=== PATIENT | female | born 1945 | race Caucasian/White ===

== ENCOUNTER 2020-12-05 08:41 | Emergency (ER) | payer MEDICARE, OTHER ==
[~2020-12-05] VITALS: Ht 167.6 cm; Wt 90.9 kg
[~2020-12-05 08:41] MED LIST: AMLO-311 PO; ASPI-482 PO; CLON0.5T4 PO; ESCITALOPRAM OX10 MG PO; HYDR12.553 PO; LISI-517 PO; LOVA40TA2 PO; OMEP20TA8 PO; PERP1TAB5 PO; TRAZ-120 PO
[2020-12-05] MEDS ORDERED: AMOX1TAB61 PO (09:10)
--- NOTE | 2020-12-05 09:10 | PHYS DOC ---
Past History Past Medical History: Arthritis, Fibromyalgia, Hypertension Past Surgical History: Appendectomy, Oophorectomy Alcohol Use: None Drug Use: None General Adult EDM: Chief Complaint: DENTAL PROBLEM HPI: HPI: Patient is a 75-year-old female presenting for 2 days of worsening right lower jaw pain. Patient states she has swelling in the side of her mouth. States he was eating and bit down on something 2 days ago that caused pain and has been worsening. No systemic complaints. She felt like her tongue was a little bit swollen but no difficulty swallowing and says her tongue swelling is better now. Review of Systems: Review of Systems: All other systems within normal limits except for as noted in the HPI Allergies: Allergies: Allergies Coded Allergies Type Severity Reaction Last Updated Verified No Known Drug Allergies 12/20/13 No Physical Exam: PE: Constitutional: Well developed, well nourished, no acute distress, non-toxic appearance. [] HENT: Normocephalic, atraumatic, bilateral external ears normal, nose normal. Edema of right gingiva, multiple dental caries, no fluctuance or purulent drainage. No oral lesions. No evidence of tongue swelling.[] Eyes: PERRLA, conjunctiva normal, no discharge. [] Neck: No rigidity, supple, no stridor. [] Cardiovascular: Regular rate and rhythm, brisk cap refill [] Lungs & Thorax: Non labored symmetric respirations, no tachypnea or respiratory distress [] Abdomen: Soft, nondistended. Skin: Warm, dry, no erythema, no rash. [] Back: Unremarkable Extremities: No deformities, range of motion grossly intact, no lower extremity edema [] Neurologic: Alert and oriented X 3, no focal deficits noted. [] Psychologic: Affect normal, judgement normal, mood normal. [] EKG: EKG: [] Radiology/Procedures: Radiology/Procedures: [] Heart Score: C/O Chest Pain: No Risk Factors: Risk Factors: DM, Current or recent (<one month) smoker, HTN, HLP, family history of CAD, obesity. Risk Scores: Score 0 - 3: 2.5% MACE over next 6 weeks - Discharge Home Score 4 - 6: 20.3% MACE over next 6 weeks - Admit for Clinical Observation Score 7 - 10: 72.7% MACE over next 6 weeks - Early Invasive Strategies Course & Med Decision Making: Course & Med Decision Making Pertinent Labs and Imaging studies reviewed. (See chart for details) [] Dragon Disclaimer: Dragon Disclaimer: This electronic medical record was generated, in whole or in part, using a voice recognition dictation system. Departure Departure: Impression: Primary Impression: Dental abscess Disposition: HOME / SELF CARE / HOMELESS Condition: STABLE Referrals: PARKER ZELAYA MD (PCP) Patient Instructions: Dental Abscess Scripts Amoxicillin/Potassium Clav (AUGMENTIN 875-125 TABLET) 1 Each Tablet 1 TAB PO BID for antibiotic for 10 Days, #20 TAB 0 Refills Prov: TAHIRA PERSON MD 12/05/20 TAHIRA PERSON MD Dec 05, 2020 09:10
[2020-12-05 09:37] VITALS: BP 112/41
== END 2020-12-05 09:38 | disposition home or self-care (01) ==
LOC: ER 08:41
DX: K04.7 Periapical abscess without sinus (principal); K02.9 Dental caries, unspecified; M19.90 Unspecified osteoarthritis, unspecified site; M79.7 Fibromyalgia; I10 Essential (primary) hypertension
CPT/HCPCS: 99281

== ENCOUNTER 2021-07-21 09:49 | Inpatient (IN) | payer MEDICARE ==
[~2021-07-21] VITALS: Ht 167.6 cm; Wt 92.9 kg
[~2021-07-21 09:49] MED LIST changes: +AMOX1TAB61 PO; -LISI-517 PO; +LISI5TAB15 PO
--- NOTE | 2021-07-21 10:03 | PHYS DOC ---
Past History Past Medical History: Arthritis, Fibromyalgia, GERD, High Cholesterol, Hypertension Past Surgical History: Appendectomy, Oophorectomy Alcohol Use: None Drug Use: None General Adult EDM: Chief Complaint: SYNCOPE HPI: HPI: 76-year-old female presents with syncopal episode at home. Patient states that she has been feeling "sick and under the weather" for the last 1 week. Other family members have been improving but she has not. She states her biggest symptom is profound fatigue. She was not vaccinated against COVID-19. The patient is coming back from the bathroom and states that she decided she would sit down and rest. The next thing she remembers is her daughter talking to her and telling her she called an ambulance. The patient says that she did not pass out but does not remember a period of time. She is not on oxygen at home. No history of COPD. Denies fever or chills. Review of Systems: Review of Systems: Constitutional: Denies fever or chills. Body aches, fatigue Eyes: Denies change in visual acuity HENT: Denies nasal congestion or sore throat Respiratory: Denies cough or shortness of breath Cardiovascular: Denies chest pain or edema GI: Denies abdominal pain, nausea, vomiting, bloody stools or diarrhea : Denies dysuria Musculoskeletal: Denies back pain or joint pain Integument: Denies rash Neurologic: Denies headache, focal weakness or sensory changes Endocrine: Denies polyuria or polydipsia Lymphatic: Denies swollen glands Psychiatric: Denies depression or anxiety Allergies: Allergies: Allergies Coded Allergies Type Severity Reaction Last Updated Verified No Known Drug Allergies 12/20/13 No Physical Exam: PE: Constitutional: Well developed, well nourished, no acute distress, non-toxic appearance. [] HENT: Normocephalic, atraumatic, bilateral external ears normal, oropharynx moist, no oral exudates, nose normal. [] Eyes: PERRLA, EOMI, conjunctiva normal, no discharge. [] Neck: Normal range of motion, no tenderness, supple, no stridor. [] Cardiovascular: Heart rate 86, regular rhythm, no murmur [] Lungs & Thorax: Bilateral breath sounds clear to auscultation [] Abdomen: Bowel sounds normal, soft, no tenderness, no masses, no pulsatile masses. [] Skin: Warm, dry, no erythema, no rash. [] Back: No tenderness, no CVA tenderness. [] Extremities: No tenderness, no cyanosis, no clubbing, ROM intact, no edema. [] Neurologic: Alert and oriented X 3, normal motor function, normal sensory function, no focal deficits noted. [] Psychologic: Affect normal, judgement normal, mood normal. [] EKG: EKG: Sinus rhythm, rate 79, normal axis, no ST elevation or depression. [] Radiology/Procedures: Radiology/Procedures: [] Impressions: Exam performed: One view chest HISTORY: Syncope. DATE OF SERVICE: 07/21/2021. COMPARISON: None available FINDINGS: Study somewhat limited due to patient's chin overlying the lung apices. Heart size and mediastinal silhouette is within limits of normal. Pulmonary vascularity is congested. There are prominent interstitial markings in both lungs with scattered airspace opacities. More focal airspace opacities are seen in both lung bases. This perhaps small left pleural effusion. IMPRESSION: Bibasilar airspace opacities likely infiltrates. Electronically signed by: Hanna Moses MD (07/21/2021 10:11 AM) [facility] DICTATED AND SIGNED BY: HANNA MOSES MD DATE: 07/21/21 1010 CC: DENY VAUGHAN DO; PARKER ZELAYA MD ~MTH0 0 Heart Score: C/O Chest Pain: N/A Risk Factors: Risk Factors: DM, Current or recent (<one month) smoker, HTN, HLP, family history of CAD, obesity. Risk Scores: Score 0 - 3: 2.5% MACE over next 6 weeks - Discharge Home Score 4 - 6: 20.3% MACE over next 6 weeks - Admit for Clinical Observation Score 7 - 10: 72.7% MACE over next 6 weeks - Early Invasive Strategies Course & Med Decision Making: Course & Med Decision Making Pertinent Labs and Imaging studies reviewed. (See chart for details) The patient's chest x-ray significant for bilateral infiltrates. I will treat her with antibiotics. This is likely COVID related pneumonia. Her EKG is unremarkable. The patient's labs are significant for an elevated creatinine of 2.4. I have no previous for comparison. The patient appears clinically dry so we have ordered a liter of normal saline was also low. Heart rate meds. Off of oxygen, the patient is 90% or slightly under. She is positive for COVID-19. I will admit her to the hospital. I spoke with Dr. Zelaya and he has accepted the patient for admission. [] Dragon Disclaimer: Dragon Disclaimer: This electronic medical record was generated, in whole or in part, using a voice recognition dictation system. Departure Departure: Impression: Primary Impression: Pneumonia due to COVID-19 virus Additional Impression: Syncope Disposition: ADMITTED INPATIENT Admitting Physician: Parker Zelaya Condition: STABLE Referrals: PARKER ZELAYA MD (PCP) DENY VAUGHAN DO Jul 21, 2021 10:03
--- NOTE | 2021-07-21 10:14 | RAD ---
Exam performed: One view chest HISTORY: Syncope. DATE OF SERVICE: 07/21/2021. COMPARISON: None available FINDINGS: Study somewhat limited due to patient's chin overlying the lung apices. Heart size and mediastinal si lhouette is within limits of normal. Pulmonary vascularity is congested. There are prominent intersti tial markings in both lungs with scattered airspace opacities. More focal airspace opacities are seen in both lung bases. This perhaps small left pleural effusion. IMPRESSION: Bibasilar airspace opacities likely infiltrates. Electronically signed by: Hanna Moses MD (07/21/2021 10:11 AM) [facility]
--- NOTE | 2021-07-21 10:22 | EKG ---
[address] [address] Test Date: 2021-07-21 Test Time: 10:07:05 Pat Name: HOME [facility] Department: Room: Gender: F Sales Strategy Manager: GERBER : 1945 Requested By: DENY VAUGHAN Order Number: [id number] Reading MD: Rafi Locke MD Measurements Intervals Melvin Rate: 79 P: 41 AZ: 144 QRS: 46 QRSD: 84 T: 48 QT: 350 QTc: 402 Interpretive Statements SINUS RHYTHM Electronically Signed On 07-22-2021 9:14:30 TIN WORKER by Rafi Locke MD
[2021-07-21 10:33] LABS: BASO % 1 % (0-3); EOS % 0 % (0-3); HEMATOCRIT 39.5 % (36.0-47.0); HEMOGLOBIN 12.9 g/dL (12.0-15.5); LYMPH # 1.1 x10^3/uL (1.0-4.8); LYMPH % 18 % (24-48); MEAN CORPUSCULAR HEMOGLOBIN 28 pg (25-35); MEAN CORPUSCULAR HGB CONC 33 g/dL (31-37); MEAN CORPUSCULAR VOLUME 87 fL (79-100); MONO # 0.6 x10^3/uL (0.0-1.1); MONO % 10 % (0-9); NEUT # 4.4 x10^3uL (1.8-7.7); NEUT % 72 % (31-73); PLATELET COUNT 233 x10^3/uL (140-400); RED BLOOD COUNT 4.56 x10^6/uL (3.50-5.40); RED CELL DISTRIBUTION WIDTH 13.6 % (11.5-14.5); WHITE BLOOD COUNT 6.2 x10^3/uL (4.0-11.0)
[2021-07-21 10:43] LABS: CALCIUM 7.7 mg/dL (8.5-10.1); CREATININE 2.4 mg/dL (0.6-1.0); GFR 19.5; POTASSIUM 3.8 mmol/L (3.5-5.1)
[2021-07-21] MEDS ORDERED: AZITHROMYCIN 250 MG TABLET. PO ONE (10:45)
[2021-07-21] MEDS ORDERED: IV NORMAL SALINE 1,000ML 1,000 ML IV ONE ×2 (10:45→11:45)
[2021-07-21 10:49] LABS: ALBUMIN 2.8 g/dL (3.4-5.0); TOTAL BILIRUBIN 0.5 mg/dL (0.2-1.0); TOTAL PROTEIN 5.5 g/dL (6.4-8.2)
[2021-07-21 11:03] LABS: INFLUENZA A PATIENT NEGATIVE (NEGATIVE); INFLUENZA B PATIENT NEGATIVE (NEGATIVE)
[2021-07-21] MEDS ORDERED: IV NORMAL SALINE 50ML 50 ML ONE (11:03)
[2021-07-21] MEDS ORDERED: cefTRIAXone SODIUM 1 GM VIAL ONE (11:03)
[2021-07-21] MEDS ORDERED: ONDANSETRON PF 4 MG/2 ML VIAL. IVP PRN (12:00)
[2021-07-21] MEDS ORDERED: DEXAMETHASONE SOD PHOS 10 MG/ML VIAL. IVP ONE (12:00)
[2021-07-21] MEDS ORDERED: ACETAMINOPHEN 325 MG TABLET PO PRN (12:00)
[2021-07-21] MEDS ORDERED: ENOXAPARIN 40 MG/0.4 ML SYRINGE. SQ ONE (12:00)
[2021-07-21] MEDS ORDERED: ENOXAPARIN 30 MG/0.3 ML SYRINGE. SQ ONE (12:15)
[2021-07-21 16:23] VITALS: BP 113/62
[2021-07-21] MEDS ORDERED: TRAM50TA PO (16:35)
[2021-07-21] MEDS ORDERED: CYCL10TA19 PO (16:35)
[2021-07-21] MEDS ORDERED: LORA0.5T21 PO (16:35)
[2021-07-21] MEDS ORDERED: PREG150C PO ×2 (16:35)
[2021-07-21] MEDS ORDERED: FLUT9.9S NS (16:35)
[2021-07-21] MEDS ORDERED: LEVO75TA PO (16:35)
[2021-07-21] MEDS ORDERED: SUMA100T4 PO (16:35)
[2021-07-21] MEDS: IPRATROPIUM/ALBUTEROL 20/100mcg/INH INHALER. INH SCH ×2 (17:00→20:00)
[2021-07-21] MEDS: DEXAMETHASONE SOD PHOS 10 MG/ML VIAL. IVP SCH (17:53)
[2021-07-21 19:58] VITALS: BP 114/63
[2021-07-21] MEDS: IV NORMAL SALINE 1,000ML 1,000 ML IV SCH (20:44)
[2021-07-21] MEDS ORDERED: ENOXAPARIN 30 MG/0.3 ML SYRINGE. SQ SCH (21:00)
[2021-07-21] MEDS ORDERED: SUMAtriptan SUCCINATE 50 MG TABLET PO PRN (22:15)
[2021-07-21 22:37] VITALS: BP 122/73
[2021-07-22] MEDS: DEXAMETHASONE SOD PHOS 10 MG/ML VIAL. IVP SCH ×5 (00:49→23:50)
[2021-07-22] MEDS: traZODone 50 MG TABLET. PO SCH ×2 (00:50→21:00)
[2021-07-22] MEDS: CYCLOBENZAPRINE 10 MG TABLET. PO SCH ×4 (00:51→20:56)
[2021-07-22] MEDS: PREGABALIN 75 MG CAPSULE PO SCH ×3 (00:51→20:57)
[2021-07-22 01:31] LABS: CLARITY,URINE CLEAR; COLOR,URINE YELLOW
[2021-07-22 01:32] LABS: BACTERIA,URINE 0 /HPF (0-FEW); BILIRUBIN,URINE NEG (NEG); GLUCOSE,URINE NEG (NEG); NITRITE,URINE NEG (NEG); RBC,URINE 0 /HPF (0-2); SQUAMOUS EPITHELIAL CELL,UR OCC /LPF; UROBILINOGEN,URINE 0.2 mg/dL (0.2 mg/dL); WBC,URINE OCC /HPF (0-4)
[2021-07-22 05:18] VITALS: BP 131/77
[2021-07-22] MEDS: LEVOTHYROXINE 75 MCG TABLET PO SCH (05:57)
[2021-07-22] MEDS: IPRATROPIUM/ALBUTEROL 20/100mcg/INH INHALER. INH SCH ×4 (08:00→20:00)
[2021-07-22] MEDS: LACTOBACILLUS RHAMNOSUS GG 1 CAPSULE. PO SCH ×2 (08:11→20:56)
[2021-07-22] MEDS: ASCORBIC ACID 1,000 MG TABLET PO SCH (08:12)
[2021-07-22] MEDS: AZITHROMYCIN 250 MG TABLET. PO SCH (08:12)
[2021-07-22] MEDS: PANTOPRAZOLE 40 MG TABLET. PO SCH (08:12)
[2021-07-22] MEDS: FAMOTIDINE 20 MG TABLET PO SCH (08:12)
[2021-07-22] MEDS: LORazepam 0.5 MG TABLET PO SCH (08:12)
[2021-07-22] MEDS: ZINC SULFATE 220 MG CAPSULE. PO SCH (08:12)
[2021-07-22] MEDS: ENOXAPARIN 30 MG/0.3 ML SYRINGE. SQ SCH (08:13)
[2021-07-22] MEDS: FLUTICASONE 50MCG/NASAL SPRAY 16GM BOTTLE. NS SCH (09:00)
[2021-07-22] MEDS ORDERED: CHOLECALCIFEROL (VITAMIN D3) 50,000 UNIT CAPSULE PO SCH (09:00)
[2021-07-22] MEDS ORDERED: DEXAMETHASONE SOD PHOS 10 MG/ML VIAL. IVP SCH (09:00)
--- NOTE | 2021-07-22 09:14 | NUR ---
During morning medication administration pt asked if her Lexapro was among the meds. Review of Med Re shows a home med of Lexapro 10 mg PO QD which was d/c. This nurse spoke with Dr Lopez who gave the order to restart the home med. Pt notified of the restart. Addendum: 07/22/21 at 0919 by ALFIE ROSAS RN Spoke with Pharmacy, who states facility does not have Lexapro. Review of med orders shows Dr Dominguez has ordered Celexa 20 mg PO QD to start 07/23/21, order changed to start today per his verbal order.
[2021-07-22] MEDS: CITALOPRAM 20 MG TABLET. PO SCH (09:30)
[2021-07-22] MEDS: IV NORMAL SALINE 1,000ML 1,000 ML IV SCH ×2 (09:48→23:09)
--- NOTE | 2021-07-22 10:47 | NUR ---
Pt has been in bed and in pleasant spirits today. She denies pain or discomfort when asked. IV in L FA patent and flushed, IV ABT currently infusing. VS stable, no signs of adverse reaction to ABT. She is contentment of B&B, she ambulates 1:1 without difficulty. She is med compliant and receptive to education provided. Pt on O2 at 2LPM via NC, O2 sats have remained at or above 94%. Plan of care continues, will pass to next shift
[2021-07-22 11:00] VITALS: BP 119/71
--- NOTE | 2021-07-22 11:09 | HP ---
DATE OF SERVICE: 07/22/2021 ADMIT DATE: 07/21/2021 HISTORY OF PRESENT ILLNESS: This is a 76, non-vaccinated COVID patient, who came down for the last week feeling increased shortness of breath, coughing, feeling ill. The patient, in turn, was in some respiratory distress, finally came in through the Emergency Room showing that her blood pressure was low at 90/40, oxygen saturation in the upper 80s. As a result of this, her chest x-ray showing the pneumonic process consistent with that of COVID. The patient was admitted with the usual protocol. PAST MEDICAL HISTORY: Includes GERD, oophorectomy, renal disease, fibromyalgia. ALLERGIES: The patient has no known allergies. FAMILY HISTORY: Unremarkable. HOME MEDICATIONS: Includes that of Flexeril, tramadol, Lyrica 150 b.i.d. and 2 capsules at bedtime, trazodone 50, lorazepam 0.5, sumatriptan, fluticasone, Prilosec, levothyroxine, Lexapro and amlodipine/atorvastatin 5/10. SOCIAL HISTORY: No smoking, alcohol or drug use. FULL CODE. REVIEW OF SYSTEMS: The patient is now starting feeling weak, tired. Denies chest pain. Does have shortness of breath. Denies any abdominal pain. Denies any melena, hematochezia, hematemesis or any other neurological symptoms per se. PHYSICAL EXAMINATION: GENERAL: This is a pleasant white female, well-developed, well-nourished, looking fairly weak. VITAL SIGNS: Blood pressure 90/40, respiratory rate 22, pulse 80, 89% on room air, 98.9. HEENT: Head atraumatic, normocephalic. Eyes, PERRLA without jaundice. The mouth and throat were normal. NECK: Supple, no JVD or thyroidmegaly. LUNGS: Diminished throughout. Poor movement of air. Crackles in the bases. CARDIOVASCULAR: Regular sinus rhythm, S1, S2. ABDOMEN: Soft, nontender. EXTREMITIES: No clubbing, cyanosis or edema. NEUROLOGIC: The patient was alert and oriented x 3. LABORATORY DATA: As noted, white count was basically normal. Chemistries outside of her kidney function 30 and 2.4, were basically all within range except for the albumin showing [id number] protein malnutrition, positive COVID. IMPRESSION: COVID pneumonia, acute respiratory failure, acute on top of chronic renal failure, non-vaccinated COVID. PLAN: The patient will be admitted, IV antibiotic therapy, some Decadron, breathing treatments, IV antibiotic therapy and make further evaluation on her as indicated. WESLEY/DORIS/ROCIO DR: Sarah TID: [id number]
[2021-07-22 15:04] VITALS: BP 117/73
[2021-07-22 20:17] VITALS: BP 132/70
[2021-07-22 23:51] VITALS: BP 128/71
[2021-07-23 05:56] VITALS: BP 132/75
[2021-07-23] MEDS: LEVOTHYROXINE 75 MCG TABLET PO SCH (06:15)
[2021-07-23] MEDS: DEXAMETHASONE SOD PHOS 10 MG/ML VIAL. IVP SCH ×3 (06:15→18:19)
[2021-07-23 06:38] LABS: CALCIUM 8.4 mg/dL (8.5-10.1); CREATININE 1.1 mg/dL (0.6-1.0); POTASSIUM 4.3 mmol/L (3.5-5.1)
[2021-07-23] MEDS: IPRATROPIUM/ALBUTEROL 20/100mcg/INH INHALER. INH SCH ×4 (08:39→20:21)
[2021-07-23] MEDS: ZINC SULFATE 220 MG CAPSULE. PO SCH (08:40)
[2021-07-23] MEDS: CYCLOBENZAPRINE 10 MG TABLET. PO SCH ×3 (08:40→20:23)
[2021-07-23] MEDS: LACTOBACILLUS RHAMNOSUS GG 1 CAPSULE. PO SCH ×2 (08:40→20:22)
[2021-07-23] MEDS: ENOXAPARIN 30 MG/0.3 ML SYRINGE. SQ SCH (08:40)
[2021-07-23] MEDS: PANTOPRAZOLE 40 MG TABLET. PO SCH (08:40)
[2021-07-23] MEDS: AZITHROMYCIN 250 MG TABLET. PO SCH (08:40)
[2021-07-23] MEDS: FAMOTIDINE 20 MG TABLET PO SCH (08:40)
[2021-07-23] MEDS: ASCORBIC ACID 1,000 MG TABLET PO SCH (08:40)
[2021-07-23] MEDS: CITALOPRAM 20 MG TABLET. PO SCH (08:40)
[2021-07-23] MEDS: LORazepam 0.5 MG TABLET PO SCH (08:40)
[2021-07-23] MEDS: PREGABALIN 75 MG CAPSULE PO SCH ×2 (08:41→20:24)
[2021-07-23] MEDS: FLUTICASONE 50MCG/NASAL SPRAY 16GM BOTTLE. NS SCH (09:00)
[2021-07-23] MEDS: ONDANSETRON ODT 4 MG TAB.RAPDIS PO PRN (10:56)
[2021-07-23 11:30] VITALS: BP 129/65
[2021-07-23] MEDS: IV NORMAL SALINE 1,000ML 1,000 ML IV SCH (12:19)
[2021-07-23] MEDS: traMADol 50 MG TABLET PO PRN (12:29)
[2021-07-23] MEDS ORDERED: HYDROcodone/APAP 7.5/325MG 1 TAB TABLET PO PRN (14:00)
[2021-07-23 15:30] VITALS: BP 119/68
[2021-07-23] MEDS: ZOLPIDEM 5 MG TABLET. PO SCH (20:22)
[2021-07-23] MEDS: traZODone 50 MG TABLET. PO SCH (20:23)
[2021-07-23 20:27] VITALS: BP 138/71
[2021-07-24] MEDS: DEXAMETHASONE SOD PHOS 10 MG/ML VIAL. IVP SCH ×4 (00:13→17:56)
[2021-07-24 00:15] VITALS: BP 139/71
[2021-07-24] MEDS: IV NORMAL SALINE 1,000ML 1,000 ML IV SCH ×2 (01:57→16:05)
--- NOTE | 2021-07-24 03:44 | PN ---
DATE: 07/23/2021 SUBJECTIVE: A 76-year-old female in with pneumonia. The patient says she is resting fairly comfortably, still having some trouble breathing. Does have a low-grade temperature today. The patient continues to be monitored carefully on this. Otherwise, she says her fibromyalgia is bothering her. OBJECTIVE: VITAL SIGNS: Blood pressure 120/70, respiratory rate 18, pulse 80 and low-grade temperature 99, 2-1/2 liters at 95%. GENERAL: The patient is alert and oriented. LUNGS: Show some crackles. CARDIOVASCULAR: Stable. ABDOMEN: Soft, nontender. NEUROLOGIC: The patient is making good progress overall. IMPRESSION: COVID-19 pneumonia. PLAN: Continue with present drug regimen, treat her for fibromyalgia and make further evaluation on her as indicated. RAYNA DR: Sarah TID: [id number]
[2021-07-24] MEDS: LEVOTHYROXINE 75 MCG TABLET PO SCH (05:36)
[2021-07-24 06:31] VITALS: BP 146/74
[2021-07-24] MEDS: IPRATROPIUM/ALBUTEROL 20/100mcg/INH INHALER. INH SCH ×4 (08:31→21:15)
[2021-07-24] MEDS: PANTOPRAZOLE 40 MG TABLET. PO SCH (08:31)
[2021-07-24] MEDS: ENOXAPARIN 40 MG/0.4 ML SYRINGE. SQ SCH (08:31)
[2021-07-24] MEDS: LACTOBACILLUS RHAMNOSUS GG 1 CAPSULE. PO SCH ×2 (08:31→21:14)
[2021-07-24] MEDS: CYCLOBENZAPRINE 10 MG TABLET. PO SCH ×3 (08:31→21:14)
[2021-07-24] MEDS: AZITHROMYCIN 250 MG TABLET. PO SCH (08:32)
[2021-07-24] MEDS: PREGABALIN 75 MG CAPSULE PO SCH ×2 (08:32→21:14)
[2021-07-24] MEDS: ZINC SULFATE 220 MG CAPSULE. PO SCH (08:32)
[2021-07-24] MEDS: CITALOPRAM 20 MG TABLET. PO SCH (08:32)
[2021-07-24] MEDS: ASCORBIC ACID 1,000 MG TABLET PO SCH (08:32)
[2021-07-24] MEDS: FLUTICASONE 50MCG/NASAL SPRAY 16GM BOTTLE. NS SCH (08:33)
[2021-07-24] MEDS: LORazepam 0.5 MG TABLET PO SCH (08:33)
[2021-07-24] MEDS: FAMOTIDINE 20 MG TABLET PO SCH (08:33)
[2021-07-24] MEDS: ONDANSETRON ODT 4 MG TAB.RAPDIS PO PRN (09:36)
--- NOTE | 2021-07-24 10:33 | RAD ---
EXAM: Chest, single view. HISTORY: Pneumonia. COMPARISON: 07/21/2021 FINDINGS: A frontal view of the chest is obtained. There has been no significant change in multifocal interstitial infiltrate superimposed on chronic interstitial changes. There is biapical pleural thic kening due to scarring. There is also suspected lingular scarring. There is a stable cardiac silhouet te. IMPRESSION: Multifocal interstitial infiltrate superimposed on chronic interstitial changes. Electronically signed by: Fina Tohmas MD (07/24/2021 10:31 AM) [id number]
[2021-07-24 11:06] VITALS: BP 128/73
[2021-07-24] MEDS: traMADol 50 MG TABLET PO PRN (13:26)
--- NOTE | 2021-07-24 14:38 | NUR ---
Nursing notes PT in bed, verbalized she sleep well and not in any pain. morning assessments and medications administered per doctors orders. Assessments documented, PT ate some of her breakfast. PT in bed verberlized no pain or discomfort, call light within reach. will continue to monitor.
[2021-07-24 15:20] VITALS: BP 152/74
--- NOTE | 2021-07-24 18:02 | NUR ---
Nursing note PT in bed, verbalized she needs some medication for constipation. Doctor notified of PT request and an order of colace was put in per doctors order for the PT. Previous IV line discontinue, new line drawn, IV fluid running per doctors order. PT verbalized no pain or discomfort. Bed low call light within reach.
[2021-07-24] MEDS: ZOLPIDEM 5 MG TABLET. PO SCH (21:14)
[2021-07-24] MEDS: traZODone 50 MG TABLET. PO SCH (21:14)
[2021-07-24] MEDS: DOCUSATE SODIUM 100 MG CAPSULE PO SCH (21:14)
[2021-07-24 21:27] VITALS: BP 144/77
[2021-07-25] MEDS: DEXAMETHASONE SOD PHOS 10 MG/ML VIAL. IVP SCH ×2 (00:38→06:37)
--- NOTE | 2021-07-25 02:15 | PN ---
SUBJECTIVE: The patient without complaint, feels a little better overall. Still very weak. Chest x-ray still shows incidences of infiltrative process of her COVID-19. OBJECTIVE: VITAL SIGNS: Blood pressure 128/70, respiratory rate 18, pulse 70, afebrile, on 2 liters at 96. GENERAL: The patient otherwise alert and oriented. LUNGS: Diminished, some crackles noted. CARDIOVASCULAR: Regular sinus rhythm. ABDOMEN: Soft, nontender. EXTREMITIES: No clubbing, cyanosis, nor edema. The patient receiving PT, OT. Creatinine has improved from 2.4 down to 1.1. IMPRESSION: COVID-19 pneumonia, acute on top of chronic renal failure, severe protein malnutrition. PLAN: Continue to monitor. Received PT, OT and hopefully ready for discharge. WESLEY/REID DR: WESLEY/eleni TID: [id number]
[2021-07-25 06:11] VITALS: BP 150/79
--- NOTE | 2021-07-25 06:21 | NUR ---
Patient has been calm and cooperative. She remains on oxygen 2L NC. Patient given scheduled colace for constipation. No BM reported this shift.
[2021-07-25] MEDS: LEVOTHYROXINE 75 MCG TABLET PO SCH (06:37)
[2021-07-25] MEDS: IV NORMAL SALINE 1,000ML 1,000 ML IV SCH (06:41)
[2021-07-25] MEDS: ONDANSETRON ODT 4 MG TAB.RAPDIS PO PRN (06:42)
[2021-07-25] MEDS: IPRATROPIUM/ALBUTEROL 20/100mcg/INH INHALER. INH SCH (08:13)
[2021-07-25] MEDS: DOCUSATE SODIUM 100 MG CAPSULE PO SCH (08:14)
[2021-07-25] MEDS: CYCLOBENZAPRINE 10 MG TABLET. PO SCH (08:14)
[2021-07-25] MEDS: LORazepam 0.5 MG TABLET PO SCH (08:14)
[2021-07-25] MEDS: FAMOTIDINE 20 MG TABLET PO SCH (08:14)
[2021-07-25] MEDS: AZITHROMYCIN 250 MG TABLET. PO SCH (08:14)
[2021-07-25] MEDS: PANTOPRAZOLE 40 MG TABLET. PO SCH (08:14)
[2021-07-25] MEDS: PREGABALIN 75 MG CAPSULE PO SCH (08:14)
[2021-07-25] MEDS: ASCORBIC ACID 1,000 MG TABLET PO SCH (08:14)
[2021-07-25] MEDS: CITALOPRAM 20 MG TABLET. PO SCH (08:14)
[2021-07-25] MEDS: ZINC SULFATE 220 MG CAPSULE. PO SCH (08:14)
[2021-07-25] MEDS: LACTOBACILLUS RHAMNOSUS GG 1 CAPSULE. PO SCH (08:14)
[2021-07-25] MEDS: FLUTICASONE 50MCG/NASAL SPRAY 16GM BOTTLE. NS SCH (08:15)
[2021-07-25] MEDS ORDERED: MAGNESIUM CITRATE 296 ML SOLUTION. PO PRN (10:00)
[2021-07-25] MEDS ORDERED: MAGNESIUM CITRATE 296 ML SOLUTION. PO ONE (10:00)
[2021-07-25] MEDS: ENOXAPARIN 40 MG/0.4 ML SYRINGE. SQ SCH (10:22)
[2021-07-25] MEDS ORDERED: CHOL500021 PO (10:57)
[2021-07-25] MEDS ORDERED: CYCL10TA19 PO (10:57)
[2021-07-25] MEDS ORDERED: ASCO100019 PO (10:57)
[2021-07-25] MEDS ORDERED: GUAI600T47 PO (10:57)
[2021-07-25] MEDS ORDERED: IPRA4AER INH (10:57)
[2021-07-25] MEDS ORDERED: LACT1CAP19 PO (10:57)
[2021-07-25] MEDS ORDERED: AZIT250T6 PO (10:57)
[2021-07-25] MEDS ORDERED: ZINC220C5 PO (10:57)
[2021-07-25] MEDS ORDERED: DEXA0.5T15 PO (10:57)
[2021-07-25] MEDS ORDERED: CITA20TA9 PO (10:57)
--- NOTE | 2021-07-25 11:01 | DISCH ---
HOME HEALTH DISCHARGE/MEDS DISCHARGE INFORMATION: Discharge Date: Jul 25, 2021 Final Diagnosis: Problems Medical Problems: (1) Pneumonia due to COVID-19 virus Status: Acute (2) Syncope Status: Acute Condition on Discharge: Stable CODE STATUS: Code Status: Full HOME HEALTH: Face to Face: I certify this patient is under my care and that I, or a nurse practitioner or physician's press operator assistant working with me, had a face to face encounter that meets the physician face to face encounter requirements with this patient on June. Medical Condition(s): HTN, Pneumonia, Other (Acute on chronic renal failure) Fpc For: Assess Cardiopulm Status, Assess & Educate Safety, Assess/Skilled Observatio, Medication Management, Pain Management Physical Therapy For: Evalulation/Treatment Occupational Therapy For: Evaluation/Treatment Homebound Status Met By: Fatigue w/ amb., Limited distance walking POST DISCHARGE ORDERS: Activity Instructions for Disc: Activity as tolerated Weight Bearing Status after Di: No restrictions DIET AFTER DISCHARGE: Regular CERTIFICATION STATEMENT: Certification Statement: Based on the above finding, I certify that this patient is confined to the home and needs intermittent custodial care, physical therapy and/or speech therapy, or continues to need occupational therapy.~ This patient is under my care, and I have initiated the establishment of the plan of care.~ This patient will be followed by myself or a community physician who will periodically review the plan of care. DISCHARGE MEDICATIONS: Home Meds Reported Medications Fluticasone Propionate (Flonase Allergy Relief) 9.9 Ml Weott.susp, 2 SPRAYS NS DAILY for ., ML 07/21/21 Lorazepam (ATIVAN ) 0.5 Mg Tablet, 0.5 MG PO DAILY08 for ., TAB 07/21/21 Sumatriptan Succinate (SUMATRIPTAN SUCCINATE) 100 Mg Tablet, 1 TAB PO PRN 1-2XD PRN for MIGRAINE HEADACHE, #9 TAB 3 Refills 07/21/21 Tramadol Hcl (TRAMADOL HCL) 50 Mg Tablet, 50 MG PO PRN Q6HRS PRN for PAIN, TAB 07/21/21 Cyclobenzaprine Hcl (CYCLOBENZAPRINE HCL) 10 Mg Tablet, 1 TAB PO TID for ., #90 TAB 07/21/21 Pregabalin (LYRICA) 150 Mg Capsule, 2 CAP PO QHS for ., #60 CAP 5 Refills 07/21/21 Pregabalin (LYRICA) 150 Mg Capsule, 1 CAP PO DAILY08 for ., #60 CAP 5 Refills 07/21/21 Levothyroxine Sodium (SYNTHROID) 75 Mcg Tablet, 1 TAB PO DAILY06 for hypothyroid, #30 TAB 5 Refills 07/21/21 Trazodone Hcl (TRAZODONE HCL) 50 Mg Tablet, 50 MG PO 12/20/13 Omeprazole (OMEPRAZOLE) 20 Mg Tablet.dr, 20 MG PO 12/20/13 Discontinued Reported Medications Escitalopram Oxalate (ESCITALOPRAM OXALATE) 10 Mg Tablet, 10 MG PO DAILY for ANTI-DEPRESSANT, #30 TAB 0 Refills 12/20/13 Amlodipine/Atorvastatin (AMLODIPINE-ATORVAST 5-10 MG) 1 Each Tablet, 1 EACH PO 12/20/13 PARKER ZELAYA MD Jul 25, 2021 11:01
[2021-07-25] MEDS ORDERED: CEFD300C PO (11:07)
--- NOTE | 2021-07-25 12:42 | NUR ---
PT DISCHARGED FROM FACILITY. PT LEFT WITH BELONGINGS AND DISCHARGE PAPERWORK. STAFF HELPED PT INTO VEHICLE. DAUGHTER PICKED UP PT. IV AND HEART MONITOR DC'D.
== END 2021-07-25 12:44 | disposition home health service (06) | DRG 177 ==
LOC: ER 09:49 → ER HOLD 11:47 → 1 SOUTH 15:44
PROVIDERS: ADMIT Family Medicine; ATTEND Family Medicine
DX: U07.1 COVID-19 (principal); J12.82 Pneumonia due to coronavirus disease 2019; E43 Unspecified severe protein-calorie malnutrition; J96.00 Acute respiratory failure, unspecified whether with hypoxia or hypercapnia; E78.00 Pure hypercholesterolemia, unspecified; I12.9 Hypertensive chronic kidney disease with stage 1 through stage 4 chronic kidney disease, or unspecified chronic kidney disease; M79.7 Fibromyalgia; N18.9 Chronic kidney disease, unspecified; Z90.49 Acquired absence of other specified parts of digestive tract; K21.9 Gastro-esophageal reflux disease without esophagitis; M19.90 Unspecified osteoarthritis, unspecified site; Z68.33 Body mass index [BMI] 33.0-33.9, adult
CPT/HCPCS: 36415; 71045; 80048; 80053; 81001; 84484; 85025; 87428; 93005; 96361; 96365; 96366; 96372; 96375; J0696; J1100; J1650; Q0162; 97110; 97530; 99285-25; J7030